=== PATIENT | female | born 1950 | race Caucasian/White ===

== ENCOUNTER 2018-03-25 10:37 | Inpatient (IN) | payer MEDICAID ==
[~2018-03-25] VITALS: Ht 162.6 cm; Wt 44.9 kg
[2018-03-25] MEDS ORDERED: LORA-259 PO (13:41)
[2018-03-25] MEDS ORDERED: ASA81 PO (13:41)
[2018-03-25] MEDS ORDERED: ASCO500T20 PO (13:41)
[2018-03-25] MEDS ORDERED: METO50TA7 PO (13:41)
[2018-03-25] MEDS ORDERED: IPRATROPIUM/ALBUTEROL SULFATE 3 ML AMPUL.NEB (DUONEB) INH PRN (15:00)
[2018-03-25] MEDS ORDERED: MORPHINE 2 MG/ML INJ. SYRINGE ONE (15:23)
[2018-03-25 15:28] VITALS: BP_SYST 140
[2018-03-25] MEDS ORDERED: cloNIDine HCL 0.1 MG TABLET PO PRN (16:00)
[2018-03-25] MEDS ORDERED: ACETAMINOPHEN 325 MG TABLET PO PRN (16:00)
[2018-03-25 16:31] VITALS: BP_SYST 140
[2018-03-25] MEDS ORDERED: COMMUNICATION ORDER XX ONE (17:45)
[2018-03-25] MEDS ORDERED: METOPROLOL SUCCINATE 50 MG TAB.SR.24H (TOPROL XL) PO ONE (18:00)
[2018-03-25] MEDS ORDERED: LORazepam 1 MG TABLET PO ONE (18:00)
[2018-03-25] MEDS ORDERED: ALTEPLASE 2 MG VIAL MC ONE (18:15)
[2018-03-25] MEDS: MORPHINE 4 MG/ML INJ. SYRINGE IVP PRN (20:16)
[2018-03-25 20:23] VITALS: BP_SYST 137
[2018-03-25 23:24] VITALS: BP_SYST 126
[2018-03-26] VITALS (21 sets, daily range): BP systolic 103–169
[2018-03-26] MEDS: MORPHINE 4 MG/ML INJ. SYRINGE IVP PRN ×4 (01:14→22:12)
[2018-03-26 07:44] LABS: BASOPHILS % (AUTO) 0.5 % (0.0-2.0); EOSINOPHILS # (AUTO) 0.1 K/uL (0.0-0.4); EOSINOPHILS % (AUTO) 1.8 % (0.0-4.0); HEMATOCRIT 34.5 % (36-48); HEMOGLOBIN 11.3 g/dL (12.0-16.0); LYMPHOCYTES # (AUTO) 1.8 K/uL (1.0-5.5); LYMPHOCYTES % (AUTO) 37.2 % (20.5-51.5); MEAN CORPUSCULAR HEMOGLOBIN 33 pg (27-31); MEAN CORPUSCULAR HGB CONC 33 % (32-36); MEAN CORPUSCULAR VOLUME 102 fL (79.0-98.0); MONOCYTES # (AUTO) 0.4 K/uL (0.0-1.0); NEUTROPHILS # (AUTO) 2.5 K/uL (1.8-7.7); NEUTROPHILS % (AUTO) 52.5 % (40.0-70.0); PLATELET COUNT (AUTO) 144 K/uL (130-430); WHITE BLOOD COUNT (AUTO) 4.8 K/uL (4.8-10.8)
[2018-03-26 08:05] LABS: ALBUMIN 2.9 g/dL (3.4-4.8); CALCIUM 8.6 mg/dL (8.4-11.0); CREATININE 2.32 mg/dL (0.55-1.30); POTASSIUM 3.9 mmol/L (3.5-5.1); TOTAL BILIRUBIN 0.4 mg/dL (0.0-1.0)
[2018-03-26] MEDS: cefTRIAXone 1 GM in D5W 50 ML IV SCH (08:25)
[2018-03-26] MEDS: LORazepam 1 MG TABLET PO SCH (08:25)
[2018-03-26] MEDS: ASPIRIN 81 MG TAB.CHEW PO SCH (08:26)
[2018-03-26] MEDS: METOPROLOL SUCCINATE 50 MG TAB.SR.24H (TOPROL XL) PO SCH (08:26)
[2018-03-26] MEDS: ASCORBIC ACID 500 MG TABLET PO SCH (08:26)
[2018-03-26 08:47] LABS: RED CELL DISTRIBUTION WIDTH 16.6 % (9.0-15.0)
[2018-03-26] MEDS ORDERED: MORPHINE 4 MG/ML INJ. SYRINGE IVP ONE (09:00)
[2018-03-26] MEDS: AZITHROMYCIN 500 MG in NS 250 ML IV SCH (09:09)
[2018-03-26] MEDS ORDERED: NOREPINEPHRINE BITARTRATE 8 MG in NS 242 ML IV PRN (10:00)
[2018-03-26] MEDS ORDERED: levETIRAcetam 500 MG in NS 100 ML IV ONE (10:15)
[2018-03-26] MEDS ORDERED: NOREPINEPHRINE 4 MG/4 ML VIAL IV ONE ×2 (10:25→10:26)
[2018-03-26] MEDS ORDERED: ETOMIDATE 20 MG/ 10 ML VIAL (AMIDATE) IVP ONE (11:00)
[2018-03-26] MEDS ORDERED: ROCURONIUM BROMIDE 10 MG/ML (ZEMURON) IV ONE (11:00)
[2018-03-26 11:33] LABS: BASOPHILS # (AUTO) 0.1 K/uL (0.0-0.2); BASOPHILS % (AUTO) 1.2 % (0.0-2.0); EOSINOPHILS # (AUTO) 0.1 K/uL (0.0-0.4); EOSINOPHILS % (AUTO) 1.8 % (0.0-4.0); HEMATOCRIT 36.2 % (36-48); HEMOGLOBIN 11.4 g/dL (12.0-16.0); LYMPHOCYTES # (AUTO) 3.2 K/uL (1.0-5.5); LYMPHOCYTES % (AUTO) 42.2 % (20.5-51.5); MEAN CORPUSCULAR HEMOGLOBIN 32 pg (27-31); MEAN CORPUSCULAR HGB CONC 32 % (32-36); MEAN CORPUSCULAR VOLUME 103 fL (79.0-98.0); MONOCYTES # (AUTO) 0.3 K/uL (0.0-1.0); MONOCYTES % (AUTO) 3.9 % (1.7-9.3); NEUTROPHILS # (AUTO) 3.9 K/uL (1.8-7.7); NEUTROPHILS % (AUTO) 50.9 % (40.0-70.0); PLATELET COUNT (AUTO) 155 K/uL (130-430); RED BLOOD CELL COUNT(AUTO) 3.53 MIL/uL (4.2-6.2); WHITE BLOOD COUNT (AUTO) 7.6 K/uL (4.8-10.8)
[2018-03-26 11:43] LABS: CALCIUM 9.6 mg/dL (8.4-11.0); CREATININE 2.59 mg/dL (0.55-1.30)
[2018-03-26 11:51] LABS: ALBUMIN 2.7 g/dL (3.4-4.8); TOTAL BILIRUBIN 0.3 mg/dL (0.0-1.0)
[2018-03-26] MEDS: ALBUTEROL SULFATE 0.083% 2.5 MG/3 ML VIAL.NEB INH SCH ×2 (13:13→19:52)
[2018-03-26] MEDS: IPRATROPIUM BROM 0.5 MG/2.5 ML VIAL.NEB (ATROVENT) INH SCH ×2 (13:13→19:52)
[2018-03-26] MEDS ORDERED: *HEPARIN PER PHARMACY XX ONE (18:00)
[2018-03-26] MEDS ORDERED: HEPARIN SODIUM,PORCINE 2000 UNITS/0.4 ML BOLUS IVP PRN (19:30)
[2018-03-26] MEDS ORDERED: HEPARIN 25,000 UNITS in 250 ML PREMIX IV PRN (19:30)
[2018-03-26] MEDS ORDERED: HEPARIN SODIUM,PORCINE 3000 UNITS/0.6 ML BOLUS IVP PRN (19:30)
[2018-03-26] MEDS: levETIRAcetam 500 MG in NS 100 ML IV SCH (20:03)
[2018-03-27] VITALS (31 sets, daily range): BP systolic 90–148
[2018-03-27] MEDS: IPRATROPIUM BROM 0.5 MG/2.5 ML VIAL.NEB (ATROVENT) INH SCH ×5 (00:11→19:34)
[2018-03-27] MEDS: ALBUTEROL SULFATE 0.083% 2.5 MG/3 ML VIAL.NEB INH SCH ×5 (00:11→19:34)
[2018-03-27] MEDS: MORPHINE 4 MG/ML INJ. SYRINGE IVP PRN ×2 (04:48→08:07)
[2018-03-27 05:36] LABS: BASOPHILS % (AUTO) 0.2 % (0.0-2.0); EOSINOPHILS % (AUTO) 0.5 % (0.0-4.0); HEMATOCRIT 35.6 % (36-48); HEMOGLOBIN 11.1 g/dL (12.0-16.0); LYMPHOCYTES # (AUTO) 1.2 K/uL (1.0-5.5); LYMPHOCYTES % (AUTO) 19.5 % (20.5-51.5); MEAN CORPUSCULAR HEMOGLOBIN 32 pg (27-31); MEAN CORPUSCULAR HGB CONC 31 % (32-36); MEAN CORPUSCULAR VOLUME 102 fL (79.0-98.0); MONOCYTES # (AUTO) 0.5 K/uL (0.0-1.0); MONOCYTES % (AUTO) 8.6 % (1.7-9.3); NEUTROPHILS # (AUTO) 4.3 K/uL (1.8-7.7); NEUTROPHILS % (AUTO) 71.2 % (40.0-70.0); PLATELET COUNT (AUTO) 137 K/uL (130-430); RED BLOOD CELL COUNT(AUTO) 3.49 MIL/uL (4.2-6.2); RED CELL DISTRIBUTION WIDTH 16.8 % (9.0-15.0)
[2018-03-27 05:47] LABS: CALCIUM 8.2 mg/dL (8.4-11.0); CREATININE 3.24 mg/dL (0.55-1.30); POTASSIUM 4.4 mmol/L (3.5-5.1)
[2018-03-27 05:55] LABS: ALBUMIN 2.7 g/dL (3.4-4.8); TOTAL BILIRUBIN 0.4 mg/dL (0.0-1.0)
[2018-03-27] MEDS ORDERED: DEXTROSE 50% JECT 50 ML DISP.SYRIN IVP PRN (07:45)
[2018-03-27] MEDS ORDERED: INSULIN REGULAR, HUMAN 100 UNITS/ML, 10 ML VIAL (novoLIN R) SUBCUT PRN (07:45)
[2018-03-27] MEDS: levETIRAcetam 500 MG in NS 100 ML IV SCH ×2 (08:01→20:22)
[2018-03-27] MEDS: METOPROLOL SUCCINATE 50 MG TAB.SR.24H (TOPROL XL) PO SCH (09:00)
[2018-03-27] MEDS ORDERED: BALSAM PERU/CASTOR OIL 60 GM OINT...G. TP SCH (09:00)
[2018-03-27] MEDS: ASPIRIN 81 MG TAB.CHEW PO SCH (09:20)
[2018-03-27] MEDS: LORazepam 1 MG TABLET PO SCH (09:20)
[2018-03-27] MEDS: ASCORBIC ACID 500 MG TABLET PO SCH (09:20)
[2018-03-27] MEDS ORDERED: HEPARIN SODIUM,PORCINE 5000 UNITS/ML VIAL ONE (11:08)
[2018-03-27] MEDS: cefTRIAXone 1 GM in D5W 50 ML IV SCH (12:14)
[2018-03-27] MEDS: AZITHROMYCIN 500 MG in NS 250 ML IV SCH (14:02)
[2018-03-27] MEDS ORDERED: MORPHINE 4 MG/ML INJ. SYRINGE IVP PRN (16:30)
[2018-03-27] MEDS ORDERED: LORazepam 1 MG TABLET PO PRN (16:30)
[2018-03-27] MEDS ORDERED: methylPREDNISolone SOD SUCC 40 MG/ML VIAL IVP SCH (19:00)
[2018-03-27] MEDS ORDERED: LORazepam 2 MG/ML VIAL IVP PRN (20:45)
[2018-03-28] MEDS ORDERED: NOREPINEPHRINE 4 MG/4 ML VIAL IV ONE (00:05)
[2018-03-28] MEDS ORDERED: CALCIUM CHLORIDE 1 GM/10 ML DISP.SYRIN (14 mEq Ca++/SYR) IV ONE (00:14)
[2018-03-28] MEDS ORDERED: SODIUM BICARBONATE 8.4% JECT 50 MEQ/50 ML SYRINGE IVP ONE (00:14)
[2018-03-28] MEDS ORDERED: EPINEPHrine JECT 1 MG/10 ML SYR IVP ONE (00:14)
[2018-03-28] MEDS ORDERED: AMIODARONE HCL 150 MG/3ML VIAL IV ONE (00:14)
== END 2018-03-28 00:15 | disposition expired | DRG 466 ==
LOC: SMU 13:19 → STU 13:35 → SIC 03-26 10:09
PROVIDERS: ADMIT Internal Medicine Hospice and Palliative Medicine; ATTEND Internal Medicine Hospice and Palliative Medicine
PROC: 02HV33Z Insertion of Infusion Device into Superior Vena Cava, Percutaneous Approach (ICD-10-PCS; 2018-03-25)
PROC: B548ZZA Ultrasonography of Superior Vena Cava, Guidance (ICD-10-PCS; 2018-03-25)
PROC: 5A1D70Z Performance of Urinary Filtration, Intermittent, Less than 6 Hours Per Day (ICD-10-PCS; 2018-03-25)
PROC: 5A1945Z Respiratory Ventilation, 24-96 Consecutive Hours (ICD-10-PCS; principal; 2018-03-26)
PROC: 5A1D70Z Performance of Urinary Filtration, Intermittent, Less than 6 Hours Per Day (ICD-10-PCS; 2018-03-27)
DX: T82.41XA Breakdown (mechanical) of vascular dialysis catheter, initial encounter (principal); N18.6 End stage renal disease; J96.00 Acute respiratory failure, unspecified whether with hypoxia or hypercapnia; I13.2 Hypertensive heart and chronic kidney disease with heart failure and with stage 5 chronic kidney disease, or end stage renal disease; I82.890 Acute embolism and thrombosis of other specified veins; J18.9 Pneumonia, unspecified organism; E11.22 Type 2 diabetes mellitus with diabetic chronic kidney disease; E11.51 Type 2 diabetes mellitus with diabetic peripheral angiopathy without gangrene; J44.0 Chronic obstructive pulmonary disease with (acute) lower respiratory infection; I46.9 Cardiac arrest, cause unspecified; I50.21 Acute systolic (congestive) heart failure; B19.20 Unspecified viral hepatitis C without hepatic coma; E78.5 Hyperlipidemia, unspecified; F41.9 Anxiety disorder, unspecified; I25.10 Atherosclerotic heart disease of native coronary artery without angina pectoris; N39.0 Urinary tract infection, site not specified; Y82.8 Other medical devices associated with adverse incidents; R56.9 Unspecified convulsions; Z99.2 Dependence on renal dialysis; Z87.01 Personal history of pneumonia (recurrent); Z87.891 Personal history of nicotine dependence; Z89.511 Acquired absence of right leg below knee; Z89.611 Acquired absence of right leg above knee; Y92.89 Other specified places as the place of occurrence of the external cause
CPT/HCPCS: 36415; 36600; 71045; 80053; 82803-TC; 82962; 84484; 85025; 85730-TC; 87070-TC; 87081; 87205-TC; 90935; 90937; 92950; 93005; 93306; 94002; 94003; 94640; C1751; G0378; J0171; J0282; J0456; J0696; J1030; J1644; J1953; J2060; J2270; J2997; J3490; J7030; J7050; J7060; J7613; J7620